=== PATIENT | male | born 1990 | race Caucasian/White ===

== ENCOUNTER 2017-04-26 15:02 | Emergency (ER) | payer SELFPAY ==
[~2017-04-26] VITALS: Ht 175.3 cm; Wt 100.0 kg
[~2017-04-26 15:02] MED LIST: AMOX875 PO; DICL75 PO; FLON0.053; MMW SWISH-SPIT
[2017-04-26 15:05] VITALS: BP 129/78; PULSE 67; RESP 18; TEMP 98.4; O2SAT 100
--- NOTE | 2017-04-26 15:32 | PD ---
HPI Chief Complaint: Laceration/Skin Injury Time Seen by Provider: 15:32 Travel History International Travel<30 days: No Contact w/Intl Traveler<30days: No Traveled to known affect area: No History of Present Illness HPI 26-year-old male presents to the emergency department with crush injury to the left distal index finger. Patient states he shut his finger in a door. There is bruising and small laceration to the palmar surface. Patient states pain is 9/10. He denies any other injury. He is unsure of his last tetanus shot. PFSH Past Medical History Autoimmune Disease: No Blood Disorders: No Anxiety: Yes (HAS EXPRESSED PROBLEMS WITH ANXIETY) Cardiovascular Problems: No Diminished Hearing: No Genitourinary: No Musculoskeletal: No Neurologic: No Psychiatric: No Respiratory: No Past Surgical History Other Surgery: No Social History Alcohol Use: No Tobacco Use: No Substance Use: No Allergies-Medications (Allergen,Severity, Reaction): Coded Allergies: No Known Allergies (Verified , 04/26/17) Reported Meds & Prescriptions Reported Meds & Active Scripts Active Tramadol (Tramadol HCl) 50 Mg Tab 50 Mg PO Q6H PRN Ibuprofen 800 Mg Tab 800 Mg PO Q8H PRN Cephalexin 500 Mg Cap 500 Mg PO Q8H Magic Mouthwash-Diphenhy Formula (Lidocaine/Diphenhydr/Alum/Mg/Simeth) Ml 5-10 Ml SWISH-SPIT 5 TIMES A DAY MAGIC MOUTHWASH CONTAINS 1/3 VISCOUS LIDOCAINE, 1/3 MAALOX, AND 1/[address] (Diclofenac Sod) 75 Mg Tab 75 Mg PO BID PRN Flonase (Fluticasone Propionate) 0.05 % Naspr 2 Spr NA DAILY 7 Days 2 SPRAYS EACH NOSTRIL Amoxicillin 875 Mg Tab 875 Mg PO BID 10 Days Physical Exam Narrative GENERAL: Patient is in mild to moderate distress. SKIN: Warm and dry. Normal color. Normal turgor. Patient has a linear laceration across the distal left ulnar surface of the second digit of the left hand. It is not full-thickness. There is a small subungual hematoma on the nail. The nail bed itself is intact and the laceration does not involve the. Range of motion appears to be intact with no obvious tendon injury. HEAD: Atraumatic. Normocephalic. EYES: Pupils equal and round. No scleral icterus. No injection or drainage. ENT: No nasal bleeding or discharge. Mucous membranes pink and moist. Pharynx is clear. NECK: Trachea midline. Supple nontender. CARDIOVASCULAR: Regular rate and rhythm. RESPIRATORY: No accessory muscle use. Clear to auscultation. Breath sounds equal bilaterally. MUSCULOSKELETAL: Extremities without clubbing, cyanosis, or edema. No obvious deformities. No obvious tendon injury. NEUROLOGICAL: Awake and alert. No obvious cranial nerve deficits. Motor grossly within normal limits. Five out of 5 muscle strength in the arms and legs. Normal speech. PSYCHIATRIC: Appropriate mood and affect; insight and judgment normal. Data Data Last Documented VS Vital Signs Date Time Temp Pulse Resp B/P Pulse Ox O2 Delivery O2 Flow Rate FiO2 04/26/17 15:05 98.4 67 18 129/78 100 Room Air Orders Finger (Oib2qli) (04/26/17 15:30) Ice/Cold Pack (04/26/17 15:30) Tetanus/Diphtheria Tox Adult (Tetanus/Di (04/26/17 15:45) MDM Medical Decision Making Medical Screen Exam Complete: Yes Emergency Medical Condition: Yes Differential Diagnosis Crush injury left index finger. Laceration. Possible fracture. Narrative Course Patient medically stable at time of exam. X-ray of the left index finger is obtained showing no fracture. Lacerations repaired. Please see procedure note. Dressing is placed and should remain in place for 48 hours. Patient is given ibuprofen 800 mg 3 times daily with food. Patient also given tramadol 50 mg 1 tab every 6 hours when necessary pain. Patient given Keflex 500 mg 3 times a day 7 days. Patient is to ice this as much as possible. Patient follow-up in 48 hours for recheck and evaluation for work. Work note is given. Patient can return to emergency department worsening symptoms as necessary. Procedures Procedure Narrative LACERATION LOCATION: [place]frey surface of distal left index finger LENGTH: 2 cm NUMBER OF STITCHES/STEFFANIE: 3 simple interrupted REPAIR: The area of the laceration was prepped with Betadine and sterilely draped. Digital block was placed consisting of 3 mL 1% lidocaine with epinephrine with good anesthetic effect. The wound was copiously irrigated and explored without evidence of foreign body, tendon injury or neurovascular injury. The wound was closed using 4-0 Ethilon. This was a single layer repair. A sterile dressing was applied. The patient was advised to keep the dressing clean and dry. Patient tolerated the procedure well. Diagnosis Primary Impression: Laceration of left index finger Additional Impression: Crushing injury of left index finger, initial encounter Referrals: Primary Care Physician Patient Instructions: Finger Laceration (ED), General Instructions Departure Forms: Work Release Enter return to work date: Apr 29, 2017 Special Instructions: Patient unable to work until cleared. Patient presumed to be able to work on April 29. Additional Instructions: Dressing is placed and should remain in place for 48 hours. Patient is given ibuprofen 800 mg 3 times daily with food. Patient also given tramadol 50 mg 1 tab every 6 hours when necessary pain. Patient given Keflex 500 mg 3 times a day 7 days. Patient is to ice this as much as possible. Patient follow-up in 48 hours for recheck and evaluation for work. Work note is given. Patient can return to emergency department worsening symptoms as necessary. Med/Other Pt SpecificInfo: Prescription(s) given Scripts Tramadol 50 Mg Tab50 Mg PO Q6H PRN (PAIN) #20 TAB Prov:Cony Brody MD 04/26/17 Ibuprofen 800 Mg Rum195 Mg PO Q8H PRN (Pain/Inflammation) #30 TAB Prov:Cony Brody MD 04/26/17 Cephalexin 500 Mg [id number] Mg PO Q8H #21 CAP Prov:Cony Brody MD 04/26/17 Disposition: 01 DISCHARGE HOME Condition: Stable Filemon Pickering Apr 26, 2017 15:32
[2017-04-26] MEDS ORDERED: TETANUS/DIPHTHERIA TOXOID ADULT 0.5 ML VIAL IM ONE (15:45)
[2017-04-26] MEDS ORDERED: TRAM50TA PO (16:30)
[2017-04-26] MEDS ORDERED: IBUP800T23 PO (16:30)
[2017-04-26] MEDS ORDERED: CEPH500C PO (16:30)
--- NOTE | 2017-04-26 16:43 | RADRPT ---
EXAM DATE/TIME: 04/26/2017 15:49 [facility] COMPARISON: No previous studies available for comparison. INDICATIONS : Laceration left 2nd digit ; slammed in car door. MEDICAL HISTORY : None. SURGICAL HISTORY : None. ENCOUNTER: Initial ACUITY: 1 day PAIN SCORE: 10/10 LOCATION: Left 2nd digit FINDINGS: 3 views of the left second digit. Bone alignment within normal limits. No evidence of fracture. CONCLUSION: No evidence of fracture. Srinath Freire MD on April 26, 2017 at 16:40 Board Certified Radiologist. This report was verified electronically.
== END 2017-04-26 17:19 | disposition home or self-care (01) ==
LOC: NEPK 15:02
DX: S61.211A Laceration without foreign body of left index finger without damage to nail, initial encounter (principal); Z23 Encounter for immunization; W23.1XXA Caught, crushed, jammed, or pinched between stationary objects, initial encounter
CPT/HCPCS: 12001; 73140; 90471; 90714

== ENCOUNTER 2017-04-28 22:25 | Emergency (ER) | payer SELFPAY ==
[~2017-04-28] VITALS: Ht 175.3 cm; Wt 105.0 kg
[~2017-04-28 22:25] MED LIST changes: +CEPH500C PO; +IBUP800T23 PO; +TRAM50TA PO
[2017-04-28 22:26] VITALS: BP 123/76; PULSE 68; RESP 16; TEMP 98.1; O2SAT 98
--- NOTE | 2017-04-28 22:44 | PD ---
HPI Chief Complaint: Injury Time Seen by Provider: 22:41 Travel History International Travel<30 days: No Contact w/Intl Traveler<30days: No Traveled to known affect area: No History of Present Illness HPI Patient is a 26-year-old male presented to the reevaluation of the finger laceration. Patient was seen and evaluated in the emergency department on April 26, 2017 after he crushed his finger in a door. He has no new complaints today. He has been compliant with antibiotics. He denies any numbness, tingling, foul odor or drainage. PFSH Past Medical History Medical History: Denies Significant Hx Autoimmune Disease: No Blood Disorders: No Anxiety: Yes (HAS EXPRESSED PROBLEMS WITH ANXIETY) Cardiovascular Problems: No Diminished Hearing: No Genitourinary: No Musculoskeletal: No Neurologic: No Psychiatric: No Respiratory: No Past Surgical History Surgical History: No Previous Surgery Other Surgery: No Social History Alcohol Use: No Tobacco Use: No Substance Use: No Allergies-Medications (Allergen,Severity, Reaction): Coded Allergies: No Known Allergies (Verified , 04/26/17) Reported Meds & Prescriptions Reported Meds & Active Scripts Active Tramadol (Tramadol HCl) 50 Mg Tab 50 Mg PO Q6H PRN Ibuprofen 800 Mg Tab 800 Mg PO Q8H PRN Cephalexin 500 Mg Cap 500 Mg PO Q8H Magic Mouthwash-Diphenhy Formula (Lidocaine/Diphenhydr/Alum/Mg/Simeth) Ml 5-10 Ml SWISH-SPIT 5 TIMES A DAY MAGIC MOUTHWASH CONTAINS 1/3 VISCOUS LIDOCAINE, 1/3 MAALOX, AND 1/[address] (Diclofenac Sod) 75 Mg Tab 75 Mg PO BID PRN Flonase (Fluticasone Propionate) 0.05 % Naspr 2 Spr NA DAILY 7 Days 2 SPRAYS EACH NOSTRIL Amoxicillin 875 Mg Tab 875 Mg PO BID 10 Days Review of Systems Except as stated in HPI: all other systems reviewed are Neg Skin: Positive Other (finger laceration to the left second finger pad) Physical Exam Narrative GENERAL: This is a well-nourished, well-developed patient, in no apparent distress. SKIN: No rashes, ecchymoses or lesions. Cool and dry. Dressing to left second finger is clean, dry, intact. Brisk less than 3 second capillary refill to left second finger. Sutures are well approximated with no sign or symptom of infection. Positive radial pulse. Data Data Last Documented VS Vital Signs Date Time Temp Pulse Resp B/P Pulse Ox O2 Delivery O2 Flow Rate FiO2 04/28/17 22:26 98.1 68 16 123/76 98 Room Air [facility] Medical Decision Making Medical Screen Exam Complete: Yes Emergency Medical Condition: No Interpretation(s) Vital Signs Date Time Temp Pulse Resp B/P Pulse Ox O2 Delivery O2 Flow Rate FiO2 04/28/17 22:26 98.1 68 16 123/76 98 Room Air Differential Diagnosis Cellulitis versus wound infection versus normal wound healing versus other Narrative Course Patient is a 26-year-old male presenting to the emergency department for follow- up for a finger laceration that occurred on April 26, 2017. Upon review of medical records patient had negative imaging for fracture of the left second finger. Laceration was repaired. Patient has been compliant with antibiotic therapy, his tetanus vaccine was updated. He was advised to keep stitches clean and dry, he was advised to return to have stitches removed in 7-10 days. He was advised to return to emergency department immediately for any new or worsening symptoms. Patient was advised on warning signs. Patient and significant other verbalized understanding of these instructions. A medical screening exam was performed: At the time of evaluation the presenting medical condition was determined not to be of an emergent nature. The patient was given the option of receiving additional care, but declined. Patient was given options for additional community resources from which to obtain care. The Patient Has Been advised to seek medical attention for their presenting complaint. The patient has been advised to return to the ER at any time if an emergent condition develops. Diagnosis Primary Impression: Encounter for medical screening examination Condition: Racheal Braun Apr 28, 2017 22:44
== END 2017-04-28 23:16 | disposition left against medical advice (07) ==
LOC: NEPK 22:25
DX: S61.211D Laceration without foreign body of left index finger without damage to nail, subsequent encounter (principal); W23.1XXD Caught, crushed, jammed, or pinched between stationary objects, subsequent encounter
CPT/HCPCS: 99281